=== PATIENT | female | born 1965 | race Caucasian/White ===

== ENCOUNTER → 2020-11-02 11:11 | Outpatient (BNVA) | payer BC, SELFPAY | PROVIDERS: PCP Nurse Practitioner Family; Visit Provider Internal Medicine Rheumatology | DX: M19.90 Unspecified osteoarthritis, unspecified site (principal); Z79.899 Other long term (current) drug therapy; M77.01 Medial epicondylitis, right elbow; M77.02 Medial epicondylitis, left elbow; M77.11 Lateral epicondylitis, right elbow; M77.12 Lateral epicondylitis, left elbow; M25.552 Pain in left hip | CPT/HCPCS: 99204 ==

== ENCOUNTER 2020-11-02 13:16 | Outpatient (CLI) | payer BC, SELFPAY ==
--- NOTE | 2020-11-02 13:21 | XR_ITS ---
WS: [id number] Right knee, 3 views, 11/02/2020 Clinical Data: Z79.899 - Other assisted (current) drug therapy Comparison: None. Findings: No fractures or dislocations are seen. The joint spaces are normal. The patella is intact. The soft t issues are unremarkable. XR/XR knee RT 3V* [id number] Impression: Negative right knee. Kellgren-Jacob Classification: grade 0 (none): definite absence of x-ray felix nges of osteoarthritis
--- NOTE | 2020-11-02 13:21 | XR_ITS ---
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 Findings: No fractures or dislocations are seen. The SI joints and pubic symphysis are intact. The soft tissues are not remarkable. The hips are normal. XR/XR pelvis 1-2V* [id number] Impression: Negative for fracture.
--- NOTE | 2020-11-02 13:21 | XR_ITS ---
WS: [id number] Right hand, 3 views, 11/02/2020 Clinical Data: Z79.899 - Other group home (current) drug therapy Comparison: None. Findings: No fractures or dislocations are seen. The soft tissues are unremarkable. The joint space s are normal No periarticular demineralization or calcifications are seen. XR/XR hand RT min 3V* [id number] Impression: Negative right hand.
--- NOTE | 2020-11-02 13:21 | XR_ITS ---
WS: [id number] Cervical spine, 3 views, 11/02/2020 Clinical Data: Z79.899 - Other intermediate (current) drug therapy Comparison: None. Findings: No compression fractures are seen. The disc heights are normal. There is no prevertebral so ft tissue swelling. The odontoid is unremarkable. The soft tissues of the neck and the lung apices ar e normal. There is minimal osteoarthritic change at C5-C7 with disc space narrowing at C5-C6 and C6-7 . XR/XR cervical spine 3V* [id number] Impression: 1. Degenerative change of C5-C7. 2. Degenerative disc narrowing at C5-C6 and C6-C7.
--- NOTE | 2020-11-02 13:21 | XR_ITS ---
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 Findings: No fractures or dislocations are seen. The soft tissues are unremarkable. The joint spaces are normal No periarticular demineralization or calcifications are seen. XR/XR hand LT min 3V* [id number] Impression: Negative left hand.
--- NOTE | 2020-11-02 13:21 | XR_ITS ---
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 Findings: No fractures or dislocations are seen. The joint spaces are normal. The patella is intact. The soft t issues are unremarkable. XR/XR knee LT 3V* [id number] Impression: Negative left knee. Kellgren-Jacob Classification: grade 0 (none): definite absence of x-ray felix nges of osteoarthritis
[2020-11-02 14:57] LABS: Basophils # 0.1 10^3/uL (0.0-0.1); Basophils % 0.8 %; Eosinophils # 0.2 10^3/uL (0.0-0.8); Eosinophils % 1.6 %; Hematocrit 46.8 % (37.0-47.0); Hemoglobin 14.4 g/dL (11.5-15.3); Lymphocytes # 3.2 10^3/uL (0.8-4.8); Lymphocytes % 31.7 %; Mean Corpuscular HGB Conc 30.8 g/dL (30.0-36.0); Mean Corpuscular Hemoglobin 26.3 pg (28.0-34.0); Mean Corpuscular Volume 85.6 fL (81-99); Mean Platelet Volume 9.9 fL (7.4-10.4); Monocytes # 0.7 10^3/uL (0.2-0.9); Monocytes % 7.3 %; Neutrophils # 5.71 10^3/uL (1.8-7.7); Neutrophils % 56.8 %; Nucleated Red Blood Cells % 0 %; Platelet Count 298 10^3/cmm (130-400); Red Blood Count 5.47 10^6/uL (4.1-5.3); White Blood Count 10.1 10^3/uL (4.0-10.0)
[2020-11-02 15:08] LABS: Alanine Aminotransferase 8 U/L (0-33); Albumin Level 4.3 g/dL (3.5-5.2); Alkaline Phosphatase 112 IU/L (35-105); Aspartate Amino Transferase 13 U/L (0-32); Globulin 2.8 g/dL (1.3-4.6); Glomerular Filtration Rate 86.9 mL/min (90-130); Total Bilirubin 0.3 mg/dL (0.15-1.2); Total Protein 7.1 g/dL (6.6-8.7)
[2020-11-02 15:24] LABS: 25 Hydroxy Vitamin D 27 ng/mL (30-100)
[2020-11-02 16:02] LABS: Erythrocyte Sedimentation Rate 7 mm/hr (0-15)
[2020-11-03 15:47] LABS: Cyclic Citrullinated Peptide <16 UNITS
[2020-11-05 09:51] LABS: HLA-B27 NEGATIVE (NEGATIVE)
== END 2020-11-02 13:17 | disposition home or self-care (01) ==
LOC: RAD 13:20
PROVIDERS: PCP Nurse Practitioner Family; Visit Provider Internal Medicine Rheumatology
DX: M19.90 Unspecified osteoarthritis, unspecified site (principal); M45.9 Ankylosing spondylitis of unspecified sites in spine; Z79.899 Other long term (current) drug therapy
CPT/HCPCS: 72040; 72170; 73130; 73562; 80076; 82306; 82565; 85025; 85651; 86140; 86812

== ENCOUNTER → 2020-12-28 13:43 | Outpatient (BNVA) | payer BC, SELFPAY | PROVIDERS: PCP Nurse Practitioner Family; Visit Provider Internal Medicine Rheumatology | DX: M15.9 Polyosteoarthritis, unspecified (principal); Z79.899 Other long term (current) drug therapy; M77.02 Medial epicondylitis, left elbow; M77.11 Lateral epicondylitis, right elbow; M77.12 Lateral epicondylitis, left elbow; M25.552 Pain in left hip | CPT/HCPCS: 99214 ==

== ENCOUNTER → 2022-05-07 15:50 | Outpatient (BNVA) | payer BC, SELFPAY | PROVIDERS: PCP Nurse Practitioner Family; Referring Provider Nurse Practitioner Family; Visit Provider Internal Medicine | DX: E03.9 Hypothyroidism, unspecified (principal); H04.123 Dry eye syndrome of bilateral lacrimal glands | CPT/HCPCS: 83516; 84439; 84443 ==

== ENCOUNTER → 2022-05-22 16:07 | Outpatient (BNVA) | payer BC, SELFPAY | PROVIDERS: PCP Nurse Practitioner Family; Visit Provider Internal Medicine Rheumatology | DX: M06.041 Rheumatoid arthritis without rheumatoid factor, right hand (principal); M06.042 Rheumatoid arthritis without rheumatoid factor, left hand; Z79.899 Other long term (current) drug therapy; M18.0 Bilateral primary osteoarthritis of first carpometacarpal joints; Z71.85 Encounter for immunization safety counseling | CPT/HCPCS: 36415; 80076; 82565; 85025; 85651; 86140 ==

== ENCOUNTER → 2024-08-27 16:05 | Outpatient (BNVA) | payer OTHER, SELFPAY | PROVIDERS: PCP Nurse Practitioner Family; Visit Provider Internal Medicine Rheumatology | DX: Z79.899 Other long term (current) drug therapy (principal); M06.041 Rheumatoid arthritis without rheumatoid factor, right hand; M06.042 Rheumatoid arthritis without rheumatoid factor, left hand | CPT/HCPCS: 36415; 80076; 82085; 82550; 82565; 85025; 85651; 86140 ==